=== PATIENT | male | born 1955 | race Caucasian/White ===

== ENCOUNTER 2023-05-24 14:18 | Outpatient (CLI) | payer MEDICARE, BC, SELFPAY | END 2023-05-24 14:19 | disposition home or self-care (01) | PROVIDERS: PCP Family Medicine; Visit Provider Family Medicine | DX: R53.1 Weakness (principal); E78.5 Hyperlipidemia, unspecified; N40.0 Benign prostatic hyperplasia without lower urinary tract symptoms; R29.898 Other symptoms and signs involving the musculoskeletal system; Z12.5 Encounter for screening for malignant neoplasm of prostate | CPT/HCPCS: 80076; 82607; 84153; 84443 ==

== ENCOUNTER 2023-06-02 12:51 | Outpatient (CLI) | payer MEDICARE, BC, SELFPAY ==
--- NOTE | 2023-06-02 13:00 | CRLHL7_ITS ---
For Patients: As a result of the 21st Century Cures Act, medical imaging exams and procedure reports are released immediately into your electronic medical record. You may view this report before your referring provider. If you have questions, please contact your health care provider. Indication: Confusion, left-sided weakness. Distant history of lung cancer. Technique: Noncontrast sagittal T1, axial FLAIR, T2 turbo spine echo, and diffusion weighted images. Supplemental post contrast T1 weighted axial and coronal sequences are provided after administration of 15 mL gadolinium-based IV contrast. Comparison: CT 06/18/2013 Findings: There is a 1.8 x 1.2 cm x 1.6 cm homogeneously enhancing lesion in the right post central gyrus with severe adjacent edema in the right anterior parietal lobe with effacement of the right central sulcus (image 194 series 13). There is a 5.2 x 3.9 x 4.7 cm enhancing mass arising from the right frontal calvarium with intracranial extension and invasion of the right frontal cortex, as well as scalp invasion. There is marked vasogenic edema in the right inferior frontal lobe with diffuse effacement of the right frontal horn multiple finger-like foci of enhancement extend along the posterior margin of the mass into the right frontal cortex. There is diffuse pachymeningeal thickening along the right frontal convexity likely reactive. There is a 5.1 x 4.7 x 5 cm homogeneous enhancing mass in the right temporal lobe with moderate adjacent vasogenic edema in the right temporal lobe, right hippocampus, right basal ganglia, and right insular cortex. There is complete effacement of the right temporal horn. Dural thickening along the medial aspect of the middle cranial fossa likely reactive. There is 9 mm leftward midline shift. Small focus of encephalomalacia along the left temporal pole and bilateral gyrus rectus are new since the 2013 CT and could represent chronic posttraumatic contusions. Moderate left mastoid and middle ear cavity opacification. Retention cyst and mild mucosal thickening in the left maxillary sinus. Critical findings were discussed with Dr. Longo at 2:38 p.m. Impression: 1. Large enhancing intraparenchymal mass in the right temporal lobe, large enhancing mass arising from the right frontal calvarium with both intracranial and scalp extension and smaller enhancing lesion in the right post central gyrus are most consistent with metastases. Moderate vasogenic edema results in effacement of the right temporal horn and right frontal horn and 9 mm leftward midline shift. 2. Small focus of encephalomalacia along the left temporal pole and bilateral gyrus rectus are new since the 2013 CT and could represent chronic posttraumatic contusions. 3. Moderate left mastoid and middle ear cavity opacification Dictated by Ulysses Cortez MD @ 06/02/2023 2:45:33 PM (Electronically Signed)
== END 2023-06-02 12:52 | disposition home or self-care (01) ==
PROVIDERS: PCP Family Medicine; Visit Provider Family Medicine
DX: R41.0 Disorientation, unspecified (principal); R91.8 Other nonspecific abnormal finding of lung field; R53.1 Weakness; G93.89 Other specified disorders of brain
CPT/HCPCS: 70553; A9575